=== PATIENT | female | born 1945 | race Caucasian/White ===

== ENCOUNTER 2023-12-09 15:43 | Outpatient (CLI) | payer MEDICARE, BC | END 2023-12-09 15:44 | disposition home or self-care (01) | LOC: CSHCT 15:43 | PROVIDERS: ATTEND Internal Medicine | DX: C43.9 Malignant melanoma of skin, unspecified (principal); R06.02 Shortness of breath; I26.99 Other pulmonary embolism without acute cor pulmonale; J98.11 Atelectasis; I25.10 Atherosclerotic heart disease of native coronary artery without angina pectoris; I25.84 Coronary atherosclerosis due to calcified coronary lesion | CPT/HCPCS: 71275; 82565 ==